=== PATIENT | female | born 1990 | race Hispanic/Latino ===

== ENCOUNTER 2022-12-05 02:47 | Observation (INO) | payer BC ==
[2022-12-05 03:26] LABS: #Eosinphils 0.1 thou/uL (0.0-0.7); #Lymphocytes 1.8 thou/uL (1.20-3.40); #Monocytes 0.6 thou/uL (0.11-0.59); %Basophils 0.2 % (0.0-1.0); %Eosinophils 0.7 % (0.0-10.0); %Lymphocytes 15.4 % (21.0-51.0); %Monocytes 5.5 % (0.0-10.0); %Neutrophils 78.3 % (42.0-75.0); Hemoglobin 12.2 g/dL (12.0-16.0); Mean Corpuscular HGB CONC 31.8 g/dL (32.0-36.0); Mean Corpuscular Hemoglobin 28.6 pg (27.0-31.0); Mean Platelet Volume 7.3 fL (7.4-10.4); Platelet Count 256 10x3/uL (130-400); RBC Distribution Width 11.5 % (11.5-14.5); Red Blood Cell (RBC) Count 4.26 mill/uL (4.20-5.40); White Blood Cell (WBC) Count 11.6 10x3/uL (4.8-10.8)
[2022-12-05] MEDS ORDERED: Ondansetron ODT 4 MG TAB ONE (03:32)
[2022-12-05 03:50] LABS: ALT (SGPT) 52 U/L (8-55); AST (SGOT) 29 U/L (5-34); Albumin 4.5 g/dL (3.5-5.0); Alkaline Phosphatase 99 U/L (40-110); Anion Gap 14 mmol/L (10-20); BUN (Urea Nitrogen) 11 mg/dL (7.0-18.7); Bilirubin, Total 0.6 mg/dL (0.2-1.2); Calc. Creatinine Clearance 0 mL/min (70-130); Calcium 9.3 mg/dL (7.8-10.44); Carbon Dioxide 22 mmol/L (22-29); Chloride 108 mmol/L (98-107); Estimated GFR 122; Globulin 3.1 g/dL (2.4-3.5); Glucose 112 mg/dL (70-105); Lipase 17 U/L (8-78); Potassium 4.3 mmol/L (3.5-5.1); Protein, Total 7.6 g/dL (6.0-8.3); Sodium 140 mmol/L (136-145)
[2022-12-05 04:01] LABS: Bacteria/HPF None Seen HPF (None Seen); Bilirubin Negative (Negative); Blood, Urine Negative (Negative); Clarity Clear (Clear); Glucose, Urine (Dipstick) Normal (Negative); Ketone, Urine 40 mg/dL (Negative); Leukocyte 25 Leu/uL (Negative); Nitrite Negative (Negative); Protein, Urine (Dipstick) 20 mg/dL (Neg-Trace); RBC/HPF 0-3 HPF (0-3); Specific Gravity, Urine 1.034 (1.002-1.036); Squamous Epithelial 0-3 HPF (0-3)
[2022-12-05 04:10] LABS: Pregnancy Test - Urine (BHCG) Negative (Negative); Pregu Control Background? CLEAR/WHITE (CLR/WHITE); Pregu Control Bar Appear? YES (CONTROL BAR); Specific Gravity 1.034 (1.002-1.036)
[2022-12-05] MEDS ORDERED: Morphine 4 MG/ML VIAL ONE ×2 (04:27→05:17)
[2022-12-05] MEDS ORDERED: Piperacillin/Tazobactam 3.375 GM VIAL ONE ×2 (05:17→13:22)
[2022-12-05] MEDS ORDERED: Iopamidol-370 76% 500 ML 1 ML ONE (08:36)
[2022-12-05] MEDS ORDERED: Ondansetron PF 4 MG/2 ML Vial IVP PRN (08:57)
[2022-12-05] MEDS ORDERED: Morphine 4 MG/ML VIAL SLOW IVP PRN (08:57)
[2022-12-05 09:44] VITALS: BMI 50.6
[2022-12-05] MEDS: Famotidine 20 MG TAB PO SCH ×2 (09:56→20:56)
[2022-12-05] MEDS: D5 1/2 NS w/20 mEq KCL 1,000 ML IV SCH ×3 (09:56→20:56)
[2022-12-05] MEDS: traMADol HCl 50 MG TAB PO PRN ×3 (10:03→23:10)
[2022-12-05] MEDS ORDERED: Ketorolac Tromethamine 30 MG/ML VIAL ONE ×2 (13:05→13:41)
[2022-12-05] MEDS ORDERED: Ondansetron PF 4 MG/2 ML Vial ONE ×2 (13:05→13:41)
[2022-12-05] MEDS ORDERED: Bupivacaine/Epinephrine 0.25% 30 ML VIAL ONE (13:21)
[2022-12-05] MEDS ORDERED: Sodium Chloride 0.9% 100 ML ONE (13:25)
[2022-12-05] MEDS ORDERED: fentaNYL PF 100 MCG/2 ML SYRINGE ONE (13:39)
[2022-12-05] MEDS ORDERED: Promethazine HCl 25 MG/ML VIAL ONE (13:39)
[2022-12-05] MEDS ORDERED: Dexamethasone 20 MG/5 ML VIAL ONE (13:41)
[2022-12-05] MEDS ORDERED: Glycopyrrolate 0.2 MG/ML 5 ML SYRINGE ONE (13:41)
[2022-12-05] MEDS ORDERED: Lidocaine 1% PF 5 ML VIAL ONE (13:41)
[2022-12-05] MEDS ORDERED: NEOSTIGMINE 3 MG/3 ML SYR 3 MG/3 ML SYRINGE ONE (13:41)
[2022-12-05] MEDS ORDERED: Rocuronium Bromide 10 MG/ML (10ML VIAL) ONE (13:41)
[2022-12-05] MEDS ORDERED: ePHEDrine 50 MG/ML VIAL ONE (13:41)
[2022-12-05] MEDS ORDERED: PROPOFOL 200 MG/20 ML VIAL ONE (13:41)
[2022-12-05] MEDS ORDERED: Piperacillin/Tazobactam 3.375 GM in Sodium Chloride 0.9% 100 ML IVPB SCH (14:00)
[2022-12-05] MEDS ORDERED: Ondansetron HCl/PF 4 MG/2 ML Vial IVP PRN (14:50)
[2022-12-05] MEDS ORDERED: PACU-Morphine 4MG/ML VIAL SLOW IVP PRN (14:50)
[2022-12-05] MEDS ORDERED: HYDROmorphone 2 MG/ML VIAL SLOW IVP PRN (14:50)
[2022-12-05] MEDS ORDERED: Promethazine HCl 25 MG/ML VIAL IM PRN (14:50)
[2022-12-05] MEDS: Piperacillin/Tazobactam 3.375 GM in Sodium Chloride 0.9% 100 ML IVPB SCH (20:56)
[2022-12-06] MEDS: traMADol HCl 50 MG TAB PO PRN (05:00)
[2022-12-06] MEDS: Piperacillin/Tazobactam 3.375 GM in Sodium Chloride 0.9% 100 ML IVPB SCH (05:00)
[2022-12-06 05:55] LABS: #Lymphocytes 1.3 thou/uL (1.20-3.40); #Monocytes 0.4 thou/uL (0.11-0.59); %Basophils 0.3 % (0.0-1.0); %Eosinophils 0.2 % (0.0-10.0); %Lymphocytes 14.5 % (21.0-51.0); %Monocytes 4.2 % (0.0-10.0); %Neutrophils 80.8 % (42.0-75.0); Mean Corpuscular HGB CONC 33.3 g/dL (32.0-36.0); Mean Corpuscular Hemoglobin 30.4 pg (27.0-31.0); Mean Corpuscular Volume 91.3 fl (78.0-98.0); Mean Platelet Volume 7.5 fL (7.4-10.4); Platelet Count 234 10x3/uL (130-400); RBC Distribution Width 11.7 % (11.5-14.5); Red Blood Cell (RBC) Count 3.94 mill/uL (4.20-5.40); White Blood Cell (WBC) Count 8.7 10x3/uL (4.8-10.8)
[2022-12-06 06:12] LABS: ALT (SGPT) 44 U/L (8-55); AST (SGOT) 21 U/L (5-34); Albumin 4.2 g/dL (3.5-5.0); Alkaline Phosphatase 97 U/L (40-110); Anion Gap 13 mmol/L (10-20); BUN (Urea Nitrogen) 7 mg/dL (7.0-18.7); Bilirubin, Total 0.5 mg/dL (0.2-1.2); Calc. Creatinine Clearance 269 mL/min (70-130); Calcium 8.7 mg/dL (7.8-10.44); Carbon Dioxide 20 mmol/L (22-29); Chloride 108 mmol/L (98-107); Estimated GFR 121; Glucose 138 mg/dL (70-105); Protein, Total 7.2 g/dL (6.0-8.3); Sodium 137 mmol/L (136-145)
[2022-12-06] MEDS: Famotidine 20 MG TAB PO SCH (07:40)
[2022-12-06 11:46] VITALS: BP 111/67; TEMP 98.1
== END 2022-12-06 13:10 | disposition home or self-care (01) ==
LOC: ERS 02:47 → SURG A 07:54
PROVIDERS: ADMIT Surgery; ATTEND Surgery
PROC: 0DTJ4ZZ Resection of Appendix, Percutaneous Endoscopic Approach (ICD-10-PCS; principal; 2022-12-05)
DX: K35.80 Unspecified acute appendicitis (principal); K76.0 Fatty (change of) liver, not elsewhere classified; Z79.899 Other long term (current) drug therapy; Z20.822 Contact with and (suspected) exposure to COVID-19
CPT/HCPCS: 36415; 74177; 80053; 81003; 81015; 81025; 83690; 85025; 88304; 96365; 96366; 96375; 96376; A4649; C1776; G0378; J1100; J1885; J2270; J2405; J2543; J2550; J2704; J3480; J3490; Q0162; Q9967; U0003; U0005